=== PATIENT | male | born 1955 | race Caucasian/White ===

== ENCOUNTER 2016-11-06 10:08 | Emergency (ER) | payer BC ==
[~2016-11-06] VITALS: Ht 177.8 cm; Wt 65.3 kg
[~2016-11-06 10:08] MED LIST: ADVIL200 M1 PO; ALPRAZOLAM0.5 M3 PO; APAP/OXYCODONE1 TA5 PO; BACTRIM DS 8001 TAB PO; CYCLOPHOSPHAMID50 M1 PO; INSULIN GL100 UNITS/ SC; JENTADUETO 2.51 TA1 PO; MORPHINE SULFAT60 MG PO; OXYBUTYNIN5 MG PO; PREDNISONE 5MG.5 MG PO; TAMSULOSIN HYD0.4 MG PO; ZOFRAN24 MG PO; ZOFRAN4 MG PO; [UNRECOGNIZED DRUG - OTHER] PO
[2016-11-06 10:25] LABS: URINE BILIRUBIN - DIPSTICK NEGATIVE (NEG); URINE BLOOD NEGATIVE (NEG)
[2016-11-06] MEDS ORDERED: FLOMAX0.4 MG PO (10:39)
[2016-11-06] MEDS ORDERED: PRAMOXINE TP (10:40)
[2016-11-06] MEDS ORDERED: HYDROCORTISONE TP (10:40)
--- NOTE | 2016-11-06 10:49 | Urgent Treatment Center Report ---
History of Present Issue Date/Time Seen by Provider 11/06/16 1044 Visit Reason Pt arrived:Walked Presenting Problem:PT STATES DIFFICULTY URINATING FOR PAST 24 HOURS. STATES DIFFICULTY STARTING URINE STREAM, AND ONLLY VOIDING SMALL AMOUNTS AT A TIME. STATES HISTORY OF PROSTATE CANCER Location if Accident: Onset of symptoms date/time:/ or onset unknown for:MEDICAL HX UNKNOWN Have you (or family members/close friends) recently traveled outside the [place]? N If Yes, where/when: Have you had exposure to infectious disease within the past month? TB? Other? Specify: Source patient, RN notes reviewed, family Exam Limitations no limitations Comment Patient presents with difficulty urinating since last night. He states it takes several minutes to begin a stream, he is urinating only small volumes, and it is uncomfortable. He has a history of stage IV prostate cancer, diagnosed 2 years ago. He has had both chemo and radiation in the past. His recent PSA was elevated and starts another treatment next week. He stopped taking Capodex 2 days ago. He has a remote history of kidney stones, but no flank pain or hematuria. He has had no urinary obstruction previously. He also complains of something like a boil on his left buttock area. He states that is is uncomfortable and feels like it is bulging. Has regular bowel movements typically despite being on pain medicine for the cancer. ALLERGIES Coded Allergies: ciprofloxacin (From Cipro) (04/14/15) Home Medications Reported Medications Prednisone (Prednisone 5MG) 5 MG PO BID #60 Alprazolam 0.5 MG PO PRN PRN ANXIETY #60 OXYCODONE HCL/ACETAMINOPHEN (Oxycodone-Acetaminophen 5-325) 2 TAB PO Q4-6 Morphine Sulfate (Morphine Sulfate ER) 60 MG PO Q8H #60 Cyclophosphamide 50 MG PO QID 14 Days Diethylstilbestrol 1 MG PO DAILY INSULIN GLARGINE (Lantus 3ML Solostar Pen) 20 UNITS SC DAILY LINAGLIPTIN/METFORMIN HCL (Jentadueto 2.5 MG-500 MG Tab) 1 TAB PO BIDD History Medical History General CAD? No Angina: No [place]: No Hypertension? No Hyperlipidemia? Yes CHF? No DVT? No PE? No COPD? No Asthma? No Anemia? No GERD? No Gastric ulcers? No GI Bleed? No Hernia? No Thyroid Problems? No Hypothyroidism? No CVA? No Seizures? No Diabetes? Yes Insulin Dependent: Yes Insulin Pump: No Home FSBS? Yes Renal Insuffiency? No UTI? No Stones? Yes BPH? No GB Disease: No Nephritic Syndrome? No Asplenia? No Hepatitis? No Sickle Cell Disease? No Arthritis? No Migraines? No Cataracts? No Glaucoma? No MRSA? No HIV? No TB? No Anxiety? Yes Depression? No Cancer? Yes Site: PROSTATE STAGE IV CA More? Yes Additional hx: RADIATION R/T PROSTATE CA Immunization HX DT/Tetanus Unknown Pneumonia Refuses Surgical Hx Previous Surgery?Y PROSTATE BX Family History Family HX Diabetes Yes CAD Yes Hypertension Yes Hyperlipidemia Yes Cancer Yes TB No Social History Smoking Hx Smoker: Former Smoker Tobacco: No Packs/day < 1 Pack Alcohol Alcohol: No Review of Systems All Other Systems Reviewed and Negative Gastrointestinal denies constipation Genitourinary hesitancy, pain. denies: dysuria, hematuria. Physical Exam Vital Signs Vital Signs Date Time Temp Pulse Resp B/P Pulse O2 O2 Flow FiO2 Ox Delivery Rate 11/06 1017 98.0 96 20 149/93 98 General Appearance normal appearance, no apparent distress Respiratory Status No: respiratory distress, trachea midline, chest symmetrical. Lung Sounds bilateral: normal breath sounds, lungs clear. Cardiovascular normal exam, regular rate/rhythm, no peripheral edema, no gallop, no JVD, no murmur, no rub Gastrointestinal normal bowel sounds, normal exam, non tender Back no CVA tenderness Rectal hemorrhoids, small anal fissure 10 o clock Male Genitalia normal genitalia Neurologic alert, normal exam, oriented x 3 Mental status normal mood/affect Medical Decision Making LABS/Meds/Orders Pt receiving controlled substance in ED? No Results/Orders Laboratory Tests 11/06/16 1020: Urine Color YELLOW, Urine Appearance Clear, Urine pH 6.0, Ur Specific Camas 1.020, Urine Protein NEGATIVE, Urine Ketones NEGATIVE, Urine Blood NEGATIVE, Urine Nitrate NEGATIVE, Urine Bilirubin NEGATIVE, Urine Urobilinogen 0.2, Ur Leukocyte Esterase NEGATIVE, Urine Glucose 500 Orders Procedure Date/time Status [facility] URINE DIPSTICK 11/06 1020 Complete Departure Departure Time of Disposition 1048 Disposition DC Home or Self Care(routine) Clinical Impression Primary Impression: Urinary retention Secondary Impressions: Anal fissure, Prostate cancer Condition STABLE Referrals ATKINS,LEONIDAS Patient Instructions DI for Urinary Retention in Men Additional Instructions F/U with Dr Mata this week. May need blackwell cath if unable to urinate at home. In/out cath yielded additional 200 cc of urine after urinating small amount for urinalysis. Discharge Counseling Counseled pt/family regarding diagnosis, test results, medications/RX, home care, follow up needs Prescriptions Current Visit Scripts TAMSULOSIN HCL (Flomax) 0.4 MG PO QHS #30 CAP HYDROCORTISONE/PRAMOXINE (Proctofoam-Hc 1%-1% Foam) 1 SUIR TP TIDP PRN rectal pain #30 EACH at 4496
[2016-11-06 10:54] VITALS: BP 149/93
--- OUTSIDE RECORDS SUMMARY | 2016-11-07 16:29 | External Medical Summary Rpt ---
Author Author , DONNA THOMPSON Address Unknown Phone [email or web address] Purpose Continuity of Care Document - 09-24-2016 through 2016 Problems Code Diagnosis DOS Provider Status C61 MALIGNANT NEOPLASM OF PROSTATE K52.9 NONINFECTIV E GASTROENTER ITIS AND COLITIS, UNSPECIFIED Results Labs Lab Lab Date Result Refere Interp Status Commen Order Detail nces retati t Range on Urinalysis macro (dipstick) panel in Urine (11-06-2016 10:20) Appeara Clear CLEAR complet nce of 017 ed Urine 10:20 Bilirub NEGATIV NEG complet in 017 E ed [Presen 10:20 ce] in Urine by Test strip Erythro NEGATIV NEG complet cytes 017 E ed [Presen 10:20 ce] in Urine Color YELLOW YELLOW complet of 017 ed Urine 10:20 Ketones NEGATIV NEG complet 017 E ed [Presen 10:20 ce] in Urine by Automat ed test strip Leukocy NEGATIV NEG complet te 017 E ed esteras 10:20 e [Presen ce] in Urine by Automat ed test strip Nitrite NEGATIV NEG complet 017 E ed [Presen 10:20 ce] in Urine by Test strip Urobili 0.2 NEG complet nogen 017 ed [Presen 10:20 ce] in Urine by Test strip Hemoglobin.gastrointestinal [Presence] in Stool (09-25-2016 03:57) Hemoglo POSITIV NEG complet bin.gas 017 E ed trointe 03:57 stinal [Presen ce] in Stool --1st specime n Urinalysis dipstick W Reflex Microscopic panel in Urine (09-24-2016 21:00) Amorpho 3+ NONE complet us 017 ed sedimen 21:00 t [Presen ce] in Urine sedimen t by Light microsc opy Mucus 06-24-2 4+ NONE complet [Presen 017 ed ce] in 21:00 Urine sedimen t by Light microsc opy Leukocy 3-5 O complet hollis 017 wbc/hpf ed [#/volu 21:00 me] in Urine Urinalysis dipstick W Reflex Microscopic panel in Urine (09-24-2016 21:00) Appeara SL CLEAR complet nce of 017 CLOUDY ed Urine 21:00 Bilirub NEGATIV NEG complet in 017 E ed [Presen 21:00 ce] in Urine by Test strip Erythro NEGATIV NEG complet cytes 017 E ed [Presen 21:00 ce] in Urine Color YELLOW YELLOW complet of 017 ed Urine 21:00 Ketones 3+ NEG Abnorma complet 017 l ed [Presen 21:00 ce] in Urine by Automat ed test strip Mucus NEGATIV NEG complet [Presen 017 E ed ce] in 21:00 Urine sedimen t by Light microsc opy Nitrite NEGATIV NEG complet 017 E ed [Presen 21:00 ce] in Urine by Test strip Urobili 0.2 NEG complet nogen 017 ed [Presen 21:00 ce] in Urine by Test strip Differential panel, method unspecified - (09-24-2016 18:50) Anisocy 1+ complet tosis 017 ed [Presen 18:50 ce] in Blood LYMPH 11 % 10% - Normal complet 017 50% ed 18:50 Macrocy 2 1+ complet hollis 017 ed [Presen 18:50 ce] in Blood Platele NORMAL complet ts 017 ed [Presen 18:50 ce] in Blood by Light microsc opy Rouleau 1+ complet x 017 ed [Presen 18:50 ce] in Blood by Light microsc opy
--- OUTSIDE RECORDS SUMMARY | 2016-11-07 16:29 | External Medical Summary Rpt ---
Author Author [facility] Organization [facility] Address Unknown Phone Unavailable Care Team Providers Care Practical Nurse Clinical Coordinator Name Role Phone Geena ROBERTS PCP [phone] Encounter [facility] [id number] Date(s): 09/01/16 - 09/30/16 [facility] [address] [place] [id number]- Discharge Disposition: OP Self Care or Home Attending Physician: CHRISTOPHER PEREZ MD-ONC Referring Physician: DEEDEE ALVES MD-URO Reason for Visit SECONDARY MALIGNANT NEOPLASM OF BONE Vital Signs No data available for this section Problem List No data available for this section Allergies, Adverse Reactions, Alerts No data available for this section Medications No data available for this section Results No data available for this section Immunizations No data available for this section Procedures No data available for this section Social History No data available for this section Assessment and Plan No data available for this section Hospital Discharge Instructions No data available for this section
--- OUTSIDE RECORDS SUMMARY | 2016-11-07 16:29 | External Medical Summary Rpt ---
Author Author , DONNA THOMPSON Address Unknown Phone [email or web address] Immunization Name Date Rout CVX Reac Dose Comm Prov Is Faci e tion ent ider Refu lity Give sed n Infl 10-0 150 999 Hist D203 No D203 uenz 4-20 oric 45 45 a 16 al Quad Info Inj rmat ion - Sour ce Unsp ecif ied
--- OUTSIDE RECORDS SUMMARY | 2016-11-07 16:29 | External Medical Summary Rpt ---
Author Author [facility] Organization [facility] Address Unknown Phone Unavailable Care Team Providers Care Sharepoint Application Developer Name Role Phone Geena ROBERTS PCP [phone] Encounter [facility] [id number] Date(s): 10/01/16 - 10/31/16 [facility] [address] [place] [address]- Discharge Disposition: OP Self Care or Home [...]
--- OUTSIDE RECORDS SUMMARY | 2016-11-07 16:29 | External Medical Summary Rpt ---
Author Author , DONNA THOMPSON Address Unknown Phone [email or web address] Purpose Continuity of Care Document - 09-24-2016 [...]
--- OUTSIDE RECORDS SUMMARY | 2016-11-07 16:29 | External Medical Summary Rpt ---
Author Author [facility] Organization [facility] Address Unknown Phone Unavailable Care Team Providers Care Simulation Technician Name Role Phone Geena ROBERTS PCP [phone] Encounter [facility] [id number] Date(s): 10/01/16 - 10/31/16 [facility] [address] [place] [address]- [phone] Discharge Disposition: OP Self Care or Home [...]
--- OUTSIDE RECORDS SUMMARY | 2016-11-07 16:29 | External Medical Summary Rpt ---
Author Author [facility] Organization [facility] Address Unknown Phone Unavailable Care Team Providers Care High School Music Instructor Name Role Phone Geena ROBERTS PCP [phone] Encounter [facility] [id number] Date(s): 09/01/16 - 09/30/16 [facility] [address] [place] [address]- Discharge Disposition: OP Self Care or Home [...]
--- OUTSIDE RECORDS SUMMARY | 2016-11-07 16:29 | External Medical Summary Rpt ---
Author Author , DONNA THOMPSON Address Unknown Phone [email or web address] Immunization Name Date Rout CVX Reac Dose Comm Prov Is Faci e tion ent ider Refu lity Give sed n Infl 10-0 150 999 Hist D203 No D203 uenz 4-20 oric 45 45 a 16 al Quad Info Inj rmat ion - Sour ce Unsp ecif ied
--- OUTSIDE RECORDS SUMMARY | 2016-11-07 16:30 | External Medical Summary Rpt ---
Author Author DONNA Alaniz, [employer] Organization [employer] Address Unknown Phone Unavailable Results Urinalysis macro (dipstick) panel in Urine Observa Value Referen Units Interpr Notes Date tion ce etation Range Appeara Clear CLEAR No No No Nov 06 nce of informa informa informa 2016 Urine tion in tion in tion in 10:20 source source source AM data data data Bilirub NEGATIV NEG No No No Nov 06 in E informa informa informa 2016 [Presen tion in tion in tion in 10:20 ce] in source source source AM Urine data data data by Test strip Erythro NEGATIV NEG No No No Nov 06 cytes E informa informa informa 2016 [Presen tion in tion in tion in 10:20 ce] in source source source AM Urine data data data Color YELLOW YELLOW No No No Nov 06 of informa informa informa 2017 Urine tion in tion in tion in 10:20 source source source AM data data data Glucose NEG No No No Nov 06 [Mass/vol informati informati informati 2017 ume] in on in on in on in 10:20 AM Urine by source source source Test data data data strip Ketones NEGATIV NEG mg/dL No No Nov 06 E informa informa 2016 [Presen tion in tion in 10:20 ce] in source source AM Urine data data by Automat ed test strip pH of 5.0 - 8.5 No Normal No Nov 06 Urine informati informati 2017 on in on in 10:20 AM source source data data Protein NEG mg/dL No No Nov 06 [Mass/vol informati informati 2016 ume] in on in on in 10:20 AM Urine by source source Automated data data test strip Specific 1.005 - No Normal No Nov 06 gravity 1.030 informati informati 2017 of Urine on in on in 10:20 AM source source data data Leukocy NEGATIV NEG No No No Nov 06 te E informa informa informa 2017 esteras tion in tion in in 10:20 e source source source AM [Presen data data data ce] in Urine by Automat ed test strip Nitrite NEGATIV NEG No No No Nov 06 E informa informa informa 2016 [Presen tion in in in 10:20 ce] in source source source AM Urine data data data by Test strip Urobili 0.2 NEG E.U./dL No No Nov 06 nogen informa informa 2016 [Presen tion in in 10:20 ce] in source source AM Urine data data by Test strip Glucose [Mass/volume] in Capillary blood by Glucometer Observa Value Referen Units Interpr Notes Date ce etation Range Glucose 70 - 110 mg/dl High No Sep 26 [Mass/vol informati 2016 ume] in on in 12:16 PM Capillary source blood by data Glucomete r Glucose [Mass/volume] in Capillary blood by Glucometer Observa Value Referen Units Interpr Notes Date ce etation Range Glucose 70 - 110 mg/dl High No Sep 26 [Mass/vol informati 2017 6:31 ume] in on in AM Capillary source blood by data Glucomete r Glucose [Mass/volume] in Capillary blood by Glucometer Observa Value Referen Units Interpr Notes Date etation Range Glucose 70 - 110 mg/dl High No Sep 25 [Mass/vol informati 2017 ume] in on in 10:04 PM Capillary source blood by data Glucomete r Glucose [Mass/volume] in Capillary blood by Glucometer Observa Value Referen Units Interpr Notes Date etation Range Glucose 70 - 110 mg/dl High No Sep 25 [Mass/vol informati 2017 4:55 ume] in on in PM Capillary source blood by data Glucomete r Glucose [Mass/volume] in Capillary blood by Glucometer Observa Value Referen Units Interpr Notes ce etation Range Glucose 70 - 110 mg/dl High No Sep 25 [Mass/vol informati 2016 ume] in on in 11:52 AM Capillary source blood by data Glucomete r Glucose [Mass/volume] in Capillary blood by Glucometer Observa Value Referen Units Interpr Notes Date ce etation Range Glucose 70 - 110 mg/dl High No Sep 25 [Mass/vol informati 2017 6:24 ume] in on in AM Capillary source blood by data Glucomete r DIARRHEA PANEL,PCR Observa Value Referen Units Interpr Notes Date tion ce etation Range Adenovi NOT NOT No No No Sep 25 eliza DETECTE DETECTE informa informa informa 2017 40+41 D tion in tion in tion in 3:57 AM Ag source source source [Presen data data data ce] in Stool Aeromon NOT NOT No No No Sep 25 as DETECTE DETECTE informa informa informa 2017 salmoni D tion in tion in tion in 3:57 AM sindy source source source [Presen data data data ce] in Unspeci fied specime n Astrovi NOT NOT No No No Sep 25 eliza DETECTE DETECTE informa informa informa 2017 [Presen D tion in tion in tion in 3:57 AM ce] in source source source Stool data data data by Electro n microsc opy Campylo NOT NOT No No No Sep 25 bacter DETECTE DETECTE informa informa informa 2017 sp Ab D tion in tion in tion in 3:57 AM [Presen source source source ce] in data data data Serum Clostri NOT NOT No No No Sep 25 dium DETECTE DETECTE informa informa informa 2017 diffici D tion in tion in tion in 3:57 AM le source source source toxin data data data A+B [Presen ce] in Stool Cryptos NOT NOT No No No Sep 25 poridiu DETECTE DETECTE informa informa informa 2017 m sp Ag D tion in tion in tion in 3:57 AM source source source [Presen data data data ce] in Unspeci fied specime n Cyclosp NOT NOT No No No Sep 25 ora DETECTE DETECTE informa informa informa 2017 cayetan D tion in tion in tion in 3:57 AM kiana source source source [Presen data data data ce] in Unspeci fied specime n Escheri NOT NOT No No No Sep 25 irina DETECTE DETECTE informa informa informa 2017 coli D tion in tion in tion in 3:57 AM [Presen source source source ce] in data data data Unspeci fied specime n by Culture FDA method Escheri NOT NOT No No No Sep 25 irina DETECTE DETECTE informa informa informa 2017 coli D tion in tion in tion in 3:57 AM [Presen source source source ce] in data data data Unspeci fied specime n by Culture FDA method Escheri NOT NOT No No No Sep 25 irina DETECTE DETECTE informa informa informa 2016 coli D tion in tion in tion in 3:57 AM Shiga-l source source source wilder data data data toxin 1 assa Escheri NOT NOT No No No Sep 25 irina DETECTE DETECTE informa informa informa 2016 coli D tion in tion in tion in 3:57 AM [id number] source source source data data data [Presen ce] in Stool by Organis m specifi c culture Entamoe NOT NOT No No No Sep 25 ba DETECTE DETECTE informa informa informa 2017 histoly D tion in tion in tion in 3:57 AM reina source source source [Presen data data data ce] in Stool by Trichro me stain Giardia NOT NOT No No No Sep 25 DETECTE DETECTE informa informa informa 2016 lamblia D tion in tion in tion in 3:57 AM Ag source source source [Presen data data data ce] in Stool Norovir NOT NOT No No No Sep 25 us Ag DETECTE DETECTE informa informa informa 2016 [Presen D tion in tion in tion in 3:57 AM ce] in source source source Stool data data data Stool NOT NOT No No No Sep 25 Plesiom DETECTE DETECTE informa informa informa 2017 onas D tion in tion in tion in 3:57 AM shigell source source source oides data data data DNA detec Rotavir NOT NOT No No No Sep 25 us RNA DETECTE DETECTE informa informa informa 2017 detecti D tion in tion in tion in 3:57 AM on by source source source probe data data data and tar Salmone NOT NOT No No No Sep 25 lla sp DETECTE DETECTE informa informa informa 2017 DNA D tion in tion in tion in 3:57 AM [Identi source source source fier] data data data in Unspeci fied specime n by Probe & target amplifi cation method Caliciv NOT NOT No No No Sep 25 irus DETECTE DETECTE informa informa informa 2016 [Identi D tion in tion in tion in 3:57 AM fier] source source source in data data data Stool by Electro n microsc opy Escheri NOT NOT No No No Sep 25 irina DETECTE DETECTE informa informa informa 2017 coli D tion in tion in tion in 3:57 AM [Presen source source source ce] in data data data Unspeci fied specime n by Culture FDA method Escheri NOT NOT No No No Sep 25 irina DETECTE DETECTE informa informa informa 2016 coli D tion in tion in tion in 3:57 AM SXT source source source gene+H7 data data data gene [Identi fier] in Unspeci fied specime n by Probe & target amplifi cation method Vibrio NOT NOT No No No Sep 25 cholera DETECTE DETECTE informa informa informa 2016 e DNA D tion in tion in tion in 3:57 AM [Presen source source source ce] in data data data Unspeci fied specime n by Probe & target amplifi cation method Vibrio NOT NOT No No No Sep 25 sp DNA DETECTE DETECTE informa informa informa 2016 [Identi D tion in tion in tion in 3:57 AM fier] source source source in data data data Unspeci fied specime n by Probe & target amplifi cation method Vibrio NOT NOT No No No Sep 25 sp DETECTE DETECTE informa informa informa 2016 identif D tion in tion in tion in 3:57 AM ied in source source source Stool data data data by Criss m specifi c culture Hemoglobin.gastrointestinal [Presence] in Stool Observa Value Referen Units Interpr Notes Date tion ce etation Range Hemoglo POSITIV NEG No No No Sep 25 bin.gas E informa informa informa 2016 trointe tion in tion in tion in 3:57 AM stinal source source source [Presen data data data ce] in Stool --1st specime n Urinalysis dipstick W Reflex Microscopic panel in Urine Observa Value Referen Units Interpr Notes Date tion ce etation Range Appeara SL CLEAR No No No Sep 24 nce of CLOUDY informa informa informa 2017 Urine tion in tion in tion in 9:00 PM source source source data data data Amorpho 3+ NONE No No No Sep 24 us informa informa informa 2017 sedimen tion in tion in tion in 9:00 PM t source source source [Presen data data data ce] in Urine sedimen t by Light microsc opy Bilirub NEGATIV NEG No No No Sep 24 in E informa informa informa 2017 [Presen tion in tion in tion in 9:00 PM ce] in source source source Urine data data data by Test strip Erythro NEGATIV NEG No No No Sep 24 cytes E informa informa informa 2017 [Presen tion in tion in tion in 9:00 PM ce] in source source source Urine data data data Color YELLOW YELLOW No No No Sep 24 of informa informa informa 2017 Urine tion in tion in tion in 9:00 PM source source source data data data Glucose NEG No High No Sep 24 [Mass/vol informati informati 2017 9:00 ume] in on in on in PM Urine by source source Test data data strip Ketones 3+ NEG mg/dL Abnorma No Sep 24 l informa 2017 [Presen tion in 9:00 PM ce] in source Urine data by Automat ed test strip Mucus NEGATIV NEG No No No Sep 24 [Presen E informa informa informa 2017 ce] in tion in tion in tion in 9:00 PM Urine source source source sedimen data data data t by Light microsc opy Mucus 4+ NONE No No No Sep 24 [Presen informa informa informa 2016 ce] in tion in tion in tion in 9:00 PM Urine source source source sedimen data data data t by Light microsc opy Nitrite NEGATIV NEG No No No Sep 24 E informa informa informa 2017 [Presen tion in tion in tion in 9:00 PM ce] in source source source Urine data data data by Test strip pH of 5.0 - 8.5 No Normal No Sesar 24 Urine informati informati 2017 9:00 on in on in PM source source data data Protein NEG mg/dL High No Sep 24 [Mass/vol informati 2017 9:00 ume] in on in PM Urine by source Automated data test strip Specific 1.005 - No Normal No Sesar 24 gravity 1.030 informati informati 2017 9:00 of Urine on in on in PM source source data data Urobili 0.2 NEG E.U./dL No No Sep 24 nogen informa informa 2017 [Presen tion in tion in 9:00 PM ce] in source source Urine data data by Test strip Leukocy [3 O wbc/hpf No No Sep 24 hollis wbc/hpf informa informa 2017 [#/volu ; 5 tion in tion in 9:00 PM me] in wbc/hpf source source Urine ] data data Urinalysis dipstick W Reflex Microscopic panel in Urine Observa Value Referen Units Interpr Notes Date tion ce etation Range Appeara SL CLEAR No No No Sep 24 nce of CLOUDY informa informa informa 2017 Urine tion in tion in tion in 9:00 PM source source source data data data Bilirub NEGATIV NEG No No No Sep 24 in E informa informa informa 2016 [Presen tion in tion in tion in 9:00 PM ce] in source source source Urine data data data by Test strip Erythro NEGATIV NEG No No No Sep 24 cytes E informa informa informa 2016 [Presen tion in tion in tion in 9:00 PM ce] in source source source Urine data data data Color YELLOW YELLOW No No No Sep 24 of informa informa informa 2017 Urine tion in tion in tion in 9:00 PM source source source data data data Glucose NEG No High No Sep 24 [Mass/vol informati informati 2017 9:00 ume] in on in on in PM Urine by source source Test data data strip Ketones 3+ NEG mg/dL Abnorma No Sep 24 l informa 2016 [Presen tion in 9:00 PM ce] in source Urine data by Automat ed test strip Mucus NEGATIV NEG No No No Sep 24 [Presen E informa informa informa 2016 ce] in tion in tion in tion in 9:00 PM Urine source source source sedimen data data data t by Light microsc opy Nitrite NEGATIV NEG No No No Sep 24 E informa informa informa 2016 [Presen tion in tion in tion in 9:00 PM ce] in source source source Urine data data data by Test strip pH of 5.0 - 8.5 No Normal No Sep 24 Urine informati informati 2017 9:00 on in on in PM source source data data Protein NEG mg/dL High No Sep 24 [Mass/vol informati 2016 9:00 ume] in on in PM Urine by source Automated data test strip Specific 1.005 - No Normal No Sep 24 gravity 1.030 informati informati 2016 9:00 of Urine on in on in PM source source data data Urobili 0.2 NEG E.U./dL No No Sep 24 nogen informa informa 2017 [Presen tion in tion in 9:00 PM ce] in source source Urine data data by Test strip Lactate [Moles/volume] in Blood Observa Value Referen Units Interpr Notes Date tion ce etation Range Lactate 0.4 - 2.0 mmol/L Normal No Sep 24 [Moles/vo informati 2016 8:00 lume] in on in PM Blood source data CBC W Auto Differential panel in Blood Observa Value Referen Units Interpr Notes Date tion ce etation Range Basophils 0 - 0.2 K/MM3 Normal No Sep 24 informati 2016 6:50 [#/volume on in PM ] in source Blood by data Automated count Basophils 0.1 - 2.0 % Normal No Sep 24 /100 informati 2017 6:50 leukocyte on in PM s in source Blood by data Automated count Eosinophi 0.0 - 0.4 K/mm3 Normal No Sep 24 ls informati 2016 6:50 [#/volume on in PM ] in source Blood by data Automated count Eosinophi 0.1 - % Normal No Sep 24 ls/100 12.0 informati 2016 6:50 leukocyte on in PM s in source Blood by data Automated count Granulocy 1.3 - 8.0 K/mm3 Normal No Sep 24 hollis informati 2017 6:50 [#/volume on in PM ] in source Blood by data Automated count Granulocy 37.0 - % High No Sep 24 hollis/100 80.0 informati 2016 6:50 leukocyte on in PM s in source Blood by data Automated count Hematocri 42.0 - % Low No Sep 24 t [Volume 52.0 informati 2016 6:50 on in PM Fraction] source of Blood data Hemoglobi 14.1 - g/dL Low No Sep 24 n 18.0 informati 2017 6:50 [Mass/vol on in PM ume] in source Blood data Lymphocyt 0.7 - 4.5 K/mm3 Low No Sep 24 es informati 2017 6:50 [#/volume on in PM ] in source Unspecifi data ed specimen by Automated count Lymphocyt 10 - 50 % Low No Sep 24 es informati 2017 6:50 [#/volume on in PM ] in source Unspecifi data ed specimen by Automated count Erythrocy 27 - 31.2 pg Normal No Sep 24 te mean informati 2017 6:50 corpuscul on in PM ar source hemoglobi data n [Entitic mass] Erythrocy 31.8 - g/dl Normal No Sep 24 te mean 35.4 informati 2017 6:50 corpuscul on in PM ar source hemoglobi data n concentra tion [Mass/vol ume] by Automated count Erythrocy 82.2 - fl Normal No Sep 24 te mean 97.8 informati 2017 6:50 corpuscul on in PM ar volume source [Entitic data volume] by Automated count Monocytes 0.1 - 1.0 K/mm3 Normal No Sep 24 informati 2017 6:50 [#/volume on in PM ] in source Blood by data Automated count Monocytes 1.7 - 9.3 % Normal No Sesar 24 /100 informati 2017 6:50 leukocyte on in PM s in source Blood by data Automated count Platelet 7.4 - fl Low No Sep 24 mean 10.4 informati 2017 6:50 volume on in PM [Entitic source volume] data in Blood by Automated count Platelets 142 - 424 K/mm3 No No Sep 24 informati informati 2017 6:50 [#/volume on in on in PM ] in source source Blood data data Erythrocy 4.6 - 6.2 M/mm3 Low No Sep 24 hollis informati 2017 6:50 [#/volume on in PM ] in source Amniotic data fluid Erythrocy 11.5 - % Normal No Sep 24 te 17.5 informati 2017 6:50 distribut on in PM ion width source [Entitic data volume] by Automated count Leukocyte 4.8 - K/MM3 Low No Sep 24 s 10.8 informati 2017 6:50 [#/volume on in PM ] in source Blood data Differential panel, method unspecified - Observa Value Referen Units Interpr Notes Date tion ce etation Range Anisocy 1+ No No No No Sep 24 tosis informa informa informa informa 2016 [Presen tion in tion in tion in tion in 6:50 PM ce] in source source source source Blood data data data data Neutrophi 0 - 8 % Normal No Sep 24 ls.band informati 2017 6:50 form/100 on in PM leukocyte source s in data Blood by Automated count LYMPH 11 10 - 50 % Normal No Sep 24 informa 2016 tion in 6:50 PM source data Macrocy 1+ No No No No Sep 24 hollis informa informa informa informa 2016 [Presen tion in tion in tion in tion in 6:50 PM ce] in source source source source Blood data data data data Monocytes 2 - 9 % Normal No Sep 24 / informati 2017 6:50 leukocyte on in PM s in source Blood by data Automated count Platele NORMAL No No No No Sep 24 ts informa informa informa informa 2016 [Presen tion in tion in tion in tion in 6:50 PM ce] in source source source source Blood data data data data by Light microsc opy Neutrophi 42 - 76 % High No Sep 24 ls informati 2017 6:50 [#/volume on in PM ] in source Blood by data Automated count Rouleau 1+ No No No No Sep 24 x informa informa informa informa 2016 [Presen tion in tion in tion in tion in 6:50 PM ce] in source source source source Blood data data data data by Light microsc opy Cells No #CELLS No No Sep 24 Counted informati informati informati 2017 6:50 Total [#] on in on in on in PM in Blood source source source data data data Amylase [Enzymatic activity/volume] in Serum or Plasma Observa Value Referen Units Interpr Notes Date tion ce etation Range Amylase 25 - 115 U/L Normal No Sep 24 [Enzymati informati 2017 6:50 c on in PM activity/ source volume] data in Serum or Plasma Comprehensive metabolic 2000 panel in Serum or Plasma Observa Value Referen Units Interpr Notes Date tion ce etation Range Albumin/G 1.1 - 1.8 No Low No Sep 24 lobulin informati informati 2017 6:50 [Mass on in on in PM ratio] in source source Serum or data data Plasma Albumin 3.4 - 5.0 gm/dL Normal No Sep 24 [Mass/vol informati 2017 6:50 ume] in on in PM Serum or source Plasma data Alkaline 46 - 116 U/L High No Sep 24 phosphata informati 2017 6:50 se on in PM [Enzymati source c data activity/ volume] in Serum or Plasma Bilirubin 0.2 - 1.0 mg/dL Normal No Sep 24 .total informati 2016 6:50 [Mass/vol on in PM ume] in source Serum or data Plasma Urea 7 - 18 mg/dL Normal No Sep 24 nitrogen informati 2017 6:50 [Mass/vol on in PM ume] in source Serum or data Plasma Calcium 8.5 - mg/dL High No Sep 24 [Mass/vol 10.1 informati 2017 6:50 ume] in on in PM Serum or source Plasma data Chloride 98 - 107 mmoL/L Normal No Sep 24 [Moles/vo informati 2016 6:50 lume] in on in PM Serum or source Plasma data Carbon 21.0 - mmoL/L Normal No Sep 24 dioxide, 32.0 informati 2017 6:50 total on in PM [Moles/vo source lume] in data Serum or Plasma Creatinin 0.70 - mg/dL Low No Sep 24 e 1.30 informati 2016 6:50 [Mass/vol on in PM ume] in source Serum or data Plasma Creatinin 50 - 200 ML/MIN Normal No Sep 24 e renal informati 2017 6:50 clearance on in PM source predicted data by Cockcroft -Gault formula Estimated >60 ML/MIN No REFERENCE Sep 24 informati RANGE: 2017 6:50 glomerula on in >60 PM r source ML/MIN/1. filtratio data 73 SQUARE n rate METERSIf (GF this patient is -A merican, then multiply theresult by 1.210. Globulin 1.3 - 3.2 gm/dL High No Sep 24 [Mass/vol informati 2017 6:50 ume] in on in PM Serum source data Glucose 74 - 106 mg/dL High No Sep 24 [Mass/vol informati 2017 6:50 ume] in on in PM Serum or source Plasma data Potassium 3.5 - 5.1 mmoL/L Normal No Sep 24 informati 2017 6:50 [Moles/vo on in PM lume] in source Serum or data Plasma Sodium 136 - 145 mmoL/L Normal No Sep 24 [Moles/vo informati 2016 6:50 lume] in on in PM Serum or source Plasma data Aspartate 15 - 37 U/L Low No Sep 24 informati 2016 6:50 aminotran on in PM sferase source [Enzymati data c activity/ volume] in Serum or Plasma Alanine 12 - 78 U/L Normal No Sep 24 aminotran informati 2016 6:50 sferase on in PM [Enzymati source c data activity/ volume] in Serum or Plasma Protein 6.4 - 8.2 gm/dL Normal No Sep 24 [Mass/vol informati 2016 6:50 ume] in on in PM Serum or source Plasma data Lipase [Enzymatic activity/volume] in Serum or Plasma Observa Value Referen Units Interpr Notes Date tion ce etation Range Lipase 73 - 393 U/L Normal No Sep 24 [Enzymati informati 2016 6:50 c on in PM activity/ source volume] data in Serum or Plasma
== END 2016-11-06 10:54 | disposition home or self-care (01) ==
LOC: UTC 10:08
PROVIDERS: Emergency Medicine
DX: K60.2 Anal fissure, unspecified (principal); C61 Malignant neoplasm of prostate

== ENCOUNTER 2016-11-26 21:26 | Emergency (ER) | payer BC ==
[~2016-11-26] VITALS: Ht 177.8 cm; Wt 64.9 kg
[~2016-11-26 21:26] MED LIST changes: +FLOMAX0.4 MG PO; +HYDROCORTISONE TP; +PRAMOXINE TP
--- NOTE | 2016-11-26 21:49 | Emergency Room Report ---
History of Present Illness Time Seen by [id number] Presenting Problem in Triage Pt arrived:Walked Presenting Problem:FEVER. PT HAS STAGE 4 PROSTATE CA, HAD LAST CHEMO TX ON . WAS TOLD BY ONCOLOGIST THAT IF FEVER DEVELOPED TO GO GET BLOOD WORK. PT ALSO C/O'S BILATERAL LEG ACHING. 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 Y Clinical Suspician of Infection? N Mental Status: 1 - Regular (Normal Baseline) Sepsis Risk:Possible Sepsis Risk Have you (or family members/close friends) recently traveled outside the [place]? N If Yes, where/when: Have you had exposure to infectious disease within the past month? N TB? Other? Specify: Source patient, RN notes reviewed, family, old records Exam Limitations no limitations Comment pt with chemotherapy about 2 weeks ago and tonight episode of fever/chill with temp at home 101-,no cough/rash or gu sx Cardiac Chest Pain Chest pain indicative of cardiac No Timing/Duration this evening Severity moderate ALLERGIES Coded Allergies: ciprofloxacin (From Cipro) (04/14/15) Home Medications Active Scripts TAMSULOSIN HCL (Flomax) 0.4 MG PO QHS #30 CAP Prov: 11/06/16 Reported Medications Prednisone (Prednisone 5MG) 5 MG PO BID #60 Alprazolam 0.5 MG PO PRN PRN ANXIETY #60 OXYCODONE HCL/ACETAMINOPHEN (Oxycodone-Acetaminophen 5-325) 2 TAB PO Q4-6 Morphine Sulfate (Morphine Sulfate ER) 60 MG PO Q8H #60 INSULIN GLARGINE (Lantus 3ML Solostar Pen) 20 UNITS SC DAILY LINAGLIPTIN/METFORMIN HCL (Jentadueto 2.5 MG-500 MG Tab) 1 TAB PO BIDD History Medical History General CAD? No Angina: No [place]: No Hypertension? No Hyperlipidemia? Yes CHF? No DVT? No PE? No COPD? No Asthma? No Anemia? No GERD? No Gastric ulcers? No GI Bleed? No Hernia? No Thyroid Problems? No Hypothyroidism? No CVA? No Seizures? No Diabetes? Yes Insulin Dependent: Yes Insulin Pump: No Home FSBS? Yes Renal Insuffiency? No End Stage Renal Disease? No UTI? No Stones? Yes BPH? No GB Disease: No Nephritic Syndrome? No Asplenia? No Hepatitis? No Sickle Cell Disease? No Arthritis? No Migraines? No Cataracts? No Glaucoma? No MRSA? No HIV? No TB? No Anxiety? Yes Depression? No Cancer? Yes Site: PROSTATE STAGE IV CA More? Yes Additional hx: RADIATION R/T PROSTATE CA Immunization Hx DT/Tetanus Unknown Pneumonia Refuses Surgical Hx Previous Surgery?Y PROSTATE BX Family History Family Hx Diabetes Yes CAD Yes Hypertension Yes Hyperlipidemia Yes Cancer Yes TB No Social History Smoking Hx Smoker: Former Smoker Tobacco: No Packs/day < 1 Pack Alcohol Alcohol: No Drugs none Review of Systems All Other Systems Reviewed and Negative Constitutional see HPI, chills, fever Eyes denies drainage ENT denies: ear discharge, epistaxis, throat pain. Respiratory denies cough, denies shortness of breath, denies wheezing Cardiovascular denies chest pain, denies palpitations, denies syncope Gastrointestinal denies abdominal pain, denies diarrhea, denies vomiting Genitourinary denies: dysuria, frequency, hesitancy, hematuria. Musculoskeletal denies back pain, denies joint pain, denies joint swelling, denies neck pain Skin denies rash Psychiatric/Neurological denies headache, denies seizure Physical Exam Vital Signs Vital Signs Date Time Temp Pulse Resp B/P Pulse O2 O2 Flow FiO2 Ox Delivery Rate 11/27 0013 93 20 129/77 99 11/26 2321 99.1 87 20 158/91 97 11/26 2321 86 20 158/91 97 11/26 2141 99.4 95 20 142/86 98 - WBC >12,000 or <4,000 or 10% bands? 2 or more SIRS Criteria Met? B/P:129/77 MAP:104 Creatinine >2.0? UA output<0.5ml/kg/hr for 2 hrs? Platelet count >100,000? Lactate >2.0mmol/1? INR >1.2 or PTT > than 60 sec? Evidence of Organ Dysfunction? Provider documented clinical suspician of infection? N Sepsis Criteria Count: 2 Sepsis Risk: Possible Sepsis Risk General Appearance no apparent distress Eye Exam - bilateral eye PERRL, bilateral eye EOMI Ear, Nose, Throat normal ENT inspection Neck supple Respiratory Status No: respiratory distress. Lung Sounds bilateral: lungs clear. 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 No Results/Orders Laboratory Tests 11/26/16 2300: Urine Color YELLOW, Urine Appearance CLEAR, Urine pH 6.5, Ur Specific Zillah <= 1.005, Urine Protein NEGATIVE, Urine Ketones NEGATIVE, Urine Blood NEGATIVE, Urine Nitrate NEGATIVE, Urine Bilirubin NEGATIVE, Urine Urobilinogen 0.2, Ur Leukocyte Esterase NEGATIVE, Urine RBC NONE, Urine WBC 3-5, Ur Squamous Epith Cells 3-5, Urine Bacteria TRACE, Urine Glucose NEGATIVE 11/26/16 2225: Sodium 133 L, Potassium 3.9, Chloride 97 L, Carbon Dioxide 29, BUN 13, Creatinine 0.6 L, Estimated Creat Clear 120, Estimated GFR (MDRD) 137, Glucose 173 H, Calcium 11.4 H, Total Bilirubin 0.8, AST 38 H, ALT 21, Alkaline Phosphatase 856 H, Total Protein 7.6, Albumin 3.7, Globulin 3.9 H, Albumin/ Globulin Ratio 0.9 L, WBC 3.2 L, RBC 4.04 L, Hgb 11.3 L, Hct 35.4 L, MCV 87.6, RDW 15.6, Plt Count 267, Gran % 75.8, Gran # 2.4, Lymphocytes % 11.5, Monocytes % 12.7 H, Lymphocytes # 0.4 L, Monocytes # 0.4, PUBS MCHC 31.9, MCH 28.0 Current Medication Orders Sig/Theresa Start time Last Medication Dose Route Stop Time Status Admin Ceftriaxone Sodium 0 .STK-MED ONE 11/28 43 DC .ROUTE Sodium Chloride 100 ML .STK-MED ONE 11/27 004 DC IV Ceftriaxone Sodium 1 GM ONCE ONE 11/27 0030 AC 11/27 Sodium Chloride 50 ML IV 11/27 Sodium Chloride 10 ML PRN PRN 11/26 2199 AC IV 11/27 2148 Orders Procedure Date/time Status CHEST(2 VIEWS-NOT PORTABLE) 11/26 2150 Active IV SALINE LOCK 11/26 2149 Active CULTURE, BLOOD 11/26 2149 Active URINALYSIS/COMPLETE 11/26 2149 Complete COMPLETE METABOLIC PANEL 11/26 2149 Complete CBC WITH AUTO DIFF 11/26 2149 Complete XRAY/CT/US XRAY/CT/US XRAY chest XR interpretation by reviewed by me Xray Results abnormal Departure Departure Time of Disposition 16 Disposition DC Home or Self Care(routine) Clinical Impression Primary Impression: Febrile illness, acute Secondary Impressions: Prostate cancer Condition STABLE Referrals Jaleel Shirley MD (Family) Patient Instructions DI for Fever (Symptom) -- Adult Additional Instructions call pcp and oncologist for follow up and restart septra and recheck if needed Discharge Counseling Counseled pt/family regarding diagnosis, test results, medications/RX, follow up needs ED Critical Care Critical Care No at 0053
[2016-11-26 22:14] LABS: URINE BILIRUBIN - DIPSTICK NEGATIVE (NEG); URINE BLOOD NEGATIVE (NEG)
[2016-11-27 00:04] LABS: HEMOGLOBIN 11.3 g/dL (14.1-18.0)
[2016-11-27 00:05] LABS: LYMPH # 0.4 K/mm3 (0.7-4.5); LYMPH % 11.5 % (10-50)
[2016-11-27 01:10] VITALS: BP 129/77
--- NOTE | 2016-11-27 06:21 | RADIOLOGY REPORT PS360 ---
CHEST(2 VIEWS-NOT PORTABLE) HISTORY: cough ORDERING PHYSICIAN: Kisha Knowles MD PATIENT AGE: 61 years COMPARISON: None available FINDINGS: The cardiomediastinal silhouette and pulmonary vascularity are within normal limits. There is patchy density noted over both lower lung zones probably related to overlying breast tissue. Previous CT scan did demonstrate gynecomastia. The lungs are otherwise clear without infiltrates, suspicious nodules, or pleural effusions. Increased density involves T8, T9, and T10 vertebral bodies most prominent at T9.. There are old bilateral seventh rib fractures IMPRESSION: 1. Ivory vertebra sign at T8, T9, and T10. 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 Otherwise negative chest
== END 2016-11-27 01:17 | disposition home or self-care (01) ==
LOC: ER 21:26
PROVIDERS: Emergency Medicine
DX: R50.9 Fever, unspecified (principal); C61 Malignant neoplasm of prostate; E11.65 Type 2 diabetes mellitus with hyperglycemia; Z79.4 Long term (current) use of insulin

== ENCOUNTER → 2016-12-27 | Outpatient (CLI) | payer BC ==
[~2016-12-27] MED LIST changes: +ALEVE220 M1
--- NOTE | 2016-12-27 12:33 | RADIOLOGY REPORT PS360 ---
ANKLE-RT-3 VIEWS HISTORY: Pain following injury METASTATIC MALIGNANT NEOPLASM TO PROSTATE ORDERING PHYSICIAN: Jaleel Shirley MD PATIENT AGE: 61 years COMPARISON: None FINDINGS: No fracture or dislocation. No lytic or blastic change. There is normal mineralization.. The joint spaces are well-preserved. No significant degenerative/arthritic changes. No erosive changes evident. IMPRESSION: Negative, no acute finding
--- NOTE | 2016-12-27 12:35 | RADIOLOGY REPORT PS360 ---
FEMUR-RT-2 VIEWS HISTORY: Pain following injury, metastatic prostate cancer METASTATIC MALIGNANT NEOPLASM TO PROSTATE ORDERING PHYSICIAN: Jaleel Shirley MD PATIENT AGE: 61 years COMPARISON: 09/05/2016 FINDINGS: Diffuse osteoblastic metastasis involves the right hemipelvis scattered foci of increased density in the proximal right femur and intertrochanteric region of the femur consistent with blastic metastasis of prostate cancer. No acute fracture or dislocation evident. The sclerosis of the proximal shaft of the right femur has progressed compared to the previous exam. IMPRESSION: 1. No acute fracture. 2. Blastic metastasis in the right hemipelvis, intertrochanteric region of the right femur, and proximal femoral shaft somewhat more prominent in the region of the proximal femoral shaft compared to the previous exam
--- NOTE | 2016-12-27 12:37 | RADIOLOGY REPORT PS360 ---
PELVIS AP ONLY HISTORY: Right hip pain following injury METASTATIC MALIGNANT NEOPLASM TO PROSTATE ORDERING PHYSICIAN: Jaleel Shirley MD PATIENT AGE: 61 years COMPARISON: 09/05/2016 FINDINGS: Diffuse blastic metastasis involves the L5 vertebral body, the right ilium, ischium, right superior and inferior pubic ramus, left superior and inferior pubic ramus, and left SI region superiorly. No acute fracture or dislocation is evident. Metastatic foci are present in the intertrochanteric region of both femurs and proximal right femoral shaft. IMPRESSION: 1. No acute fracture. 2. Diffuse blastic metastasis
--- NOTE | 2016-12-27 12:38 | RADIOLOGY REPORT PS360 ---
LOWER LEG-RT HISTORY: Right lower extremity pain following injury, prostate metastasis METASTATIC MALIGNANT NEOPLASM TO PROSTATE ORDERING PHYSICIAN: Jaleel Shirley MD PATIENT AGE: 61 years COMPARISON: None FINDINGS: No acute fracture or dislocation evident. No lytic or blastic change of the tibia or fibula. IMPRESSION: No acute finding
== END ==
LOC: RAD 11:30
DX: C79.82 Secondary malignant neoplasm of genital organs (principal)

== ENCOUNTER 2017-03-14 16:29 | Emergency (ER) | payer BC ==
[~2017-03-14] VITALS: Ht 177.8 cm; Wt 59.9 kg
--- OUTSIDE RECORDS SUMMARY | 2017-03-14 16:58 | External Medical Summary Rpt ---
Author Author [facility] Organization [facility] Address Unknown Phone Unavailable Care Team Providers Care Supply Coordinator Name Role Phone Geena ROBERTS PCP [phone] Encounter [facility] [id number] Date(s): 12/02/16 - 12/31/16 [facility] [place] [address]- Discharge Disposition: OP Self Care or Home Attending Physician: CHRISTOPHER PEREZ MD-ONC Admitting Physician: CHRISTOPHER PEREZ MD-ONC Referring Physician: DEEDEE [...]
--- OUTSIDE RECORDS SUMMARY | 2017-03-14 16:58 | External Medical Summary Rpt ---
Author Author [facility] Organization [facility] Address Unknown Phone Unavailable Care Team Providers Care Cabinet Abrasive Sandblaster Name Role Phone Geena ROBERTS PCP [phone] Encounter [facility] [id number] Date(s): 11/01/16 - 12/01/16 [facility] [address] [place] [address]- Discharge Disposition: OP Self Care or Home [...]
--- OUTSIDE RECORDS SUMMARY | 2017-03-14 16:58 | External Medical Summary Rpt ---
Author Author [facility] Organization [facility] Address Unknown Phone Unavailable Care Team Providers Care Vice President Diversity Name Role Phone Geena ROBERTS PCP [phone] Encounter [facility] [id number] Date(s): 11/01/16 - 12/01/16 [facility] [address] [place] [address]- Discharge Disposition: OP Self Care or Home [...]
--- OUTSIDE RECORDS SUMMARY | 2017-03-14 16:58 | External Medical Summary Rpt ---
Author Author [facility] Organization [facility] Address Unknown Phone Unavailable Care Team Providers Care Or Assistant Name Role Phone Geena ROBERTS PCP [phone] Encounter [facility] [id number] Date(s): 12/02/16 - 12/31/16 [facility] [place] [address]- Discharge Disposition: OP Self Care or Home [...]
--- OUTSIDE RECORDS SUMMARY | 2017-03-14 16:59 | External Medical Summary Rpt ---
Author Author [facility] Organization [facility] Address Unknown Phone Unavailable Care Team Providers Care French Drawer Name Role Phone Geena ROBERTS PCP [phone] Encounter [facility] [id number] Date(s): 02/01/17 - 03/02/17 [facility] [address] [place] [address]- Discharge Disposition: OP Self Care or Home [...]
--- OUTSIDE RECORDS SUMMARY | 2017-03-14 16:59 | External Medical Summary Rpt ---
Author Author [facility] Organization [facility] Address Unknown Phone Unavailable Care Team Providers Care Traffic Ii Manager Name Role Phone Geena ROBERTS PCP [phone] Encounter [facility] [id number] Date(s): 01/01/17 - 01/31/17 [facility] [address] [place] [address]- [phone] Discharge Disposition: OP Self Care or Home [...]
--- OUTSIDE RECORDS SUMMARY | 2017-03-14 16:59 | External Medical Summary Rpt | CCD ---
Author Author , DONNA THOMPSON Address Unknown Phone [email or web address] Purpose Continuity of Care Document - 09-24-2016 through 2016 Problems Code Diagnosis DOS Provider Status C61 MALIGNANT NEOPLASM OF PROSTATE E83.52 HYPERCALCEM IA E86.0 DEHYDRATION K52.0 GASTROENTER ITIS AND COLITIS DUE TO RADIATION K52.9 NONINFECTIV E GASTROENTER ITIS AND COLITIS, UNSPECIFIED R11.2 NAUSEA WITH VOMITING, UNSPECIFIED R50.9 FEVER, UNSPECIFIED Results Labs Lab Lab Date Result [...] Microscopic panel in Urine (09-24-2016 21:00) Amorpho 09-24-2 3+ NONE complet us 017 ed sedimen 21:00 t [Presen ce] in Urine sedimen t by Light microsc opy Mucus 2 4+ NONE complet [Presen 017 ed ce] in 21:00 Urine sedimen t by Light microsc opy Leukocy 2 3-5 O complet hollis 017 wbc/hpf ed [...] Urine by Automat ed test strip Mucus 2 NEGATIV NEG complet [Presen 017 E ed ce] in 21:00 Urine sedimen t by Light microsc opy Nitrite NEGATIV NEG complet 017 E ed [Presen 21:00 ce] in Urine by Test strip Urobili 0.2 NEG complet nogen 017 ed [Presen 21:00 ce] in Urine by Test strip Differential panel, method unspecified - (09-24-2016 18:50) Anisocy 2 1+ complet tosis 017 ed [Presen 18:50 ce] in Blood LYMPH 11 % 10% - Normal complet 017 50% ed 18:50 Macrocy 09-24-2 1+ complet hollis 017 ed [Presen 18:50 ce] in Blood Platele 2 NORMAL complet ts 017 ed [Presen 18:50 ce] in Blood by Light microsc opy Rouleau 2 1+ complet x 017 ed [Presen 18:50 ce] in Blood by Light microsc opy
--- OUTSIDE RECORDS SUMMARY | 2017-03-14 16:59 | External Medical Summary Rpt | CCD ---
Author Author , DONNA THOMPSON Address Unknown Phone [email or web address] Immunization Name Date Rout CVX Reac Dose Comm Prov Is Faci e tion ent ider Refu lity Give sed n Infl 10-0 150 999 Hist D203 No D203 uenz 4-20 oric 45 45 a 16 al Quad Info Inj rmat ion - Sour ce Unsp ecif ied
--- OUTSIDE RECORDS SUMMARY | 2017-03-14 16:59 | External Medical Summary Rpt ---
Author Author [facility] Organization [facility] Address Unknown Phone Unavailable Care Team Providers Care Casting Machine Service Operator Name Role Phone Geena ROBERTS PCP [phone] Encounter [facility] [id number] Date(s): 02/01/17 - 03/02/17 [facility] [place] [address]- Discharge Disposition: OP Self Care or Home [...]
--- OUTSIDE RECORDS SUMMARY | 2017-03-14 16:59 | External Medical Summary Rpt | CCD ---
Author Author , DONNA THOMPSON Address Unknown Phone [email or web address] Purpose Continuity of Care Document - 09-24-2016 [...]
--- OUTSIDE RECORDS SUMMARY | 2017-03-14 16:59 | External Medical Summary Rpt ---
Author Author [facility] Organization [facility] Address Unknown Phone Unavailable Care Team Providers Care Supervisor Travel Trailer Name Role Phone Geena ROBERTS PCP [phone] Encounter [facility] [id number] Date(s): 01/01/17 - 01/31/17 [facility] [address] [place] [address]- Discharge Disposition: OP Self Care or Home [...]
--- OUTSIDE RECORDS SUMMARY | 2017-03-14 16:59 | External Medical Summary Rpt | CCD ---
Author Author , DONNA THOMPSON Address Unknown Phone [email or web address] Immunization Name Date Rout CVX Reac Dose Comm Prov Is Faci e tion ent ider Refu lity Give sed n Infl 10-0 150 999 Hist D203 No D203 uenz 4-20 oric 45 45 a 16 al Quad Info Inj rmat ion - Sour ce Unsp ecif ied
--- OUTSIDE RECORDS SUMMARY | 2017-03-14 17:00 | External Medical Summary Rpt ---
Author Author ALANAEMILY Alaniz, DONNA [employer] Address Unknown Phone Unavailable Results CBC W Auto Differential panel in Blood Observa Value Referen Units Interpr Notes Date tion ce etation Range Granulocy 1.3 - 8.0 K/mm3 Normal No Nov 26 hollis informati 2016 [#/volume on in 10:25 PM ] in source Blood by data Automated count Granulocy 37.0 - % Normal No Nov 26 hollis/100 80.0 informati 2016 leukocyte on in 10:25 PM s in source Blood by data Automated count Hematocri 42.0 - % Low No Nov 26 t [Volume 52.0 informati 2016 on in 10:25 PM Fraction] source of Blood data Hemoglobi 14.1 - g/dL Low No Nov 26 n 18.0 informati 2016 [Mass/vol on in 10:25 PM ume] in source Blood data Lymphocyt 0.7 - 4.5 K/mm3 Low No Nov 26 es informati 2016 [#/volume on in 10:25 PM ] in source Unspecifi data ed specimen by Automated count Lymphocyt 10 - 50 % Normal No Nov 26 es informati 2016 [#/volume on in 10:25 PM ] in source Unspecifi data ed specimen by Automated count Erythrocy 27 - 31.2 pg Normal No Nov 26 te mean inform2016 corpuscul on in 10:25 PM ar source hemoglobi data n [Entitic mass] Erythrocy 31.8 - g/dl Normal No Nov 26 te mean 35.4 informati 2016 corpuscul on in 10:25 PM ar source hemoglobi data n concentra tion [Mass/vol ume] by Automated count Erythrocy 82.2 - fL Normal Nov 26 te mean 97.8 informati 2016 corpuscul on in 10:25 PM ar volume source [Entitic data volume] by Automated count Monocytes 0.1 - 1.0 K/mm3 Normal No Nov 26 informati 2016 [#/volume on in 10:25 PM ] in source Blood by data Automated count Monocytes 1.7 - 9.3 % High No Nov 26 /100 inform2016 leukocyte on in 10:25 PM s in source Blood by data Automated count Platelets 142 - 424 K/mm3 Normal No Nov 26 inform2016 [#/volume on in 10:25 PM ] in source Blood data Erythrocy 4.6 - 6.2 M/mm3 Low No Nov 26 hollis 2016 [#/volume on in 10:25 PM ] in source Amniotic data fluid Erythrocy 11.5 - % Normal No Nov 26 te 17.5 informati 2016 distribut on in 10:25 PM ion width source [Entitic data volume] by Automated count Leukocyte 4.8 - K/mm3 Low No Nov 26 s 10.8 informati 2016 [#/volume on in 10:25 PM ] in source Blood data Comprehensive metabolic 2000 panel in Serum or Plasma Observa Value Referen Units Interpr Notes Date tion ce etation Range Albumin/G 1.1 - 1.8 No Low No Nov 26 lobulin informati informati 2016 [Mass on in on in 10:25 PM ratio] in source source Serum or data data Plasma Albumin 3.4 - 5.0 gm/dL Normal No Nov 26 [Mass/vol informati 2016 ume] in on in 10:25 PM Serum or source Plasma data Alkaline 46 - 116 U/L High No Nov 26 phosphata 2016 se on in 10:25 PM [Enzymati source c data activity/ volume] in Serum or Plasma Bilirubin 0.2 - 1.0 mg/dL Normal No Nov 26 .total inform2016 [Mass/vol on in 10:25 PM ume] in source Serum or data Plasma Urea 7 - 18 mg/dL Normal No Nov 26 nitrogen informati 2016 [Mass/vol on in 10:25 PM ume] in source Serum or data Plasma Calcium 8.5 - mg/dL High No Nov 26 [Mass/vol 10.1 informati 2016 ume] in on in 10:25 PM Serum or source Plasma data Chloride 98 - 107 mmoL/L Low No Nov 26 [Moles/vo informati 2016 lume] in on in 10:25 PM Serum or source Plasma data Carbon 21.0 - mmoL/L Normal No Nov 26 dioxide, 32.0 informati 2016 total on in 10:25 PM [Moles/vo source lume] in data Serum or Plasma Creatinin 0.70 - mg/dL Low No Nov 26 e 1.30 inform2016 [Mass/vol on in 10:25 PM ume] in source Serum or data Plasma Creatinin 50 - 200 ML/MIN Normal No Nov 26 e renal 2016 clearance on in 10:25 PM source predicted data by Cockcroft -Gault formula Estimated >60 ML/MIN No REFERENCE Nov 26 informati RANGE: 2017 glomerula on in >60 10:25 PM r source ML/MIN/1. filtratio data 73 SQUARE n rate METERSIf (GF this patient is -A merican, then multiply theresult by 1.210. Globulin 1.3 - 3.2 gm/dL High No Nov 26 [Mass/vol informati 2016 ume] in on in 10:25 PM Serum source data Glucose 74 - 106 mg/dL High No Nov 26 [Mass/vol informati 2016 ume] in on in 10:25 PM Serum or source Plasma data Potassium 3.5 - 5.1 mmoL/L Normal No Nov 262016 [Moles/vo on in 10:25 PM lume] in source Serum or data Plasma Sodium 136 - 145 mmoL/L Low No Nov 26 [Moles/vo informati 2016 lume] in on in 10:25 PM Serum or source Plasma data Aspartate 15 - 37 U/L High No Nov 262016 aminotran on in 10:25 PM sferase source [Enzymati data c activity/ volume] in Serum or Plasma Alanine 12 - 78 U/L Normal No Nov 26 aminotran 2016 sferase on in 10:25 PM [Enzymati source c data activity/ volume] in Serum or Plasma Protein 6.4 - 8.2 gm/dL Normal No Nov 26 [Mass/vol informati 2016 ume] in on in 10:25 PM Serum or source Plasma data Comprehensive metabolic 2000 panel in Serum or Plasma Observa Value Referen Units Interpr Notes Date tion ce etation Range Albumin/G 1.1 - 1.8 No Low No Nov 26 lobulin informati ati 2016 [Mass on in on in 10:25 PM ratio] in source source Serum or data data Plasma Albumin 3.4 - 5.0 gm/dL Normal No Nov 26 [Mass/vol informati 2016 ume] in on in 10:25 PM Serum or source Plasma data Alkaline 46 - 116 U/L High No Nov 26 phosphata informati 2016 se on in 10:25 PM [Enzymati source c data activity/ volume] in Serum or Plasma Bilirubin 0.2 - 1.0 mg/dL Normal No Nov 26 .total informati 2016 [Mass/vol on in 10:25 PM ume] in source Serum or data Plasma Urea 7 - 18 mg/dL Normal No Nov 26 nitrogen informati 2016 [Mass/vol on in 10:25 PM ume] in source Serum or data Plasma Calcium 8.5 - mg/dL High No Nov 26 [Mass/vol 10.1 informati 2016 ume] in on in 10:25 PM Serum or source Plasma data Chloride 98 - 107 mmoL/L Low No Nov 26 [Moles/vo informati 2016 lume] in on in 10:25 PM Serum or source Plasma data Carbon 21.0 - mmoL/L Normal No Nov 26 dioxide, 32.0 informati 2016 total on in 10:25 PM [Moles/vo source lume] in data Serum or Plasma Creatinin 0.70 - mg/dL Low No Nov 26 e 1.30 informati 2016 [Mass/vol on in 10:25 PM ume] in source Serum or data Plasma Creatinin 50 - 200 ML/MIN Normal No Nov 26 e renal informati 2017 clearance on in 10:25 PM source predicted data by Cockcroft -Gault formula Estimated >60 ML/MIN No REFERENCE Nov 26 informati RANGE: 2017 glomerula on in >60 10:25 PM r source ML/MIN/1. filtratio data 73 SQUARE n rate METERSIf (GF this patient is -A merican, then multiply theresult by 1.210. Globulin 1.3 - 3.2 gm/dL High No Nov 26 [Mass/vol informati 2016 ume] in on in 10:25 PM Serum source data Glucose 74 - 106 mg/dL High No Nov 26 [Mass/vol informati 2016 ume] in on in 10:25 PM Serum or source Plasma data Potassium 3.5 - 5.1 mmoL/L Normal No Nov 26 informati 2016 [Moles/vo on in 10:25 PM lume] in source Serum or data Plasma Sodium 136 - 145 mmoL/L Low No Nov 26 [Moles/vo informati 2016 lume] in on in 10:25 PM Serum or source Plasma data Aspartate 15 - 37 U/L High No Nov 26 inform2016 aminotran on in 10:25 PM sferase source [Enzymati data c activity/ volume] in Serum or Plasma Alanine 12 - 78 U/L Normal No Nov 26 aminotran informati 2016 sferase on in 10:25 PM [Enzymati source c data activity/ volume] in Serum or Plasma Protein 6.4 - 8.2 gm/dL Normal No Nov 26 [Mass/vol informati 2016 ume] in on in 10:25 PM Serum or source Plasma data Comprehensive metabolic 2000 panel in Serum or Plasma Observa Value Referen Units Interpr Notes Date tion ce etation Range Albumin/G 1.1 - 1.8 No Low No Nov 26 lobulin informati informati 2016 [Mass on in on in 10:25 PM ratio] in source source Serum or data data Plasma Albumin 3.4 - 5.0 gm/dL Normal No Nov 26 [Mass/vol informati 2016 ume] in on in 10:25 PM Serum or source Plasma data Alkaline 46 - 116 U/L High No Nov 26 phosphata informati 2016 se on in 10:25 PM [Enzymati source c data activity/ volume] in Serum or Plasma Bilirubin 0.2 - 1.0 mg/dL Normal No Nov 26 .total informati 2016 [Mass/vol on in 10:25 PM ume] in source Serum or data Plasma Urea 7 - 18 mg/dL Normal No Nov 26 nitrogen informati 2016 [Mass/vol on in 10:25 PM ume] in source Serum or data Plasma Calcium 8.5 - mg/dL High No Nov 26 [Mass/vol 10.1 informati 2016 ume] in on in 10:25 PM Serum or source Plasma data Chloride 98 - 107 mmoL/L Low No Nov 26 [Moles/vo informati 2017 lume] in on in 10:25 PM Serum or source Plasma data Carbon 21.0 - mmoL/L Normal No Nov 26 dioxide, 32.0 informati 2016 total on in 10:25 PM [Moles/vo source lume] in data Serum or Plasma Creatinin 0.70 - mg/dL Low No Nov 26 e 1.30 informati 2017 [Mass/vol on in 10:25 PM ume] in source Serum or data Plasma Creatinin 50 - 200 ML/MIN Normal No Nov 26 e renal informati 2017 clearance on in 10:25 PM source predicted data by Cockcroft -Gault formula Estimated >60 ML/MIN No REFERENCE Nov 26 informati RANGE: 2017 glomerula on in >60 10:25 PM r source ML/MIN/1. filtratio data 73 SQUARE n rate METERSIf (GF this patient is -A merican, then multiply theresult by 1.210. Globulin 1.3 - 3.2 gm/dL High No Nov 26 [Mass/vol informati 2016 ume] in on in 10:25 PM Serum source data Glucose 74 - 106 mg/dL High No Nov 26 [Mass/vol informati 2016 ume] in on in 10:25 PM Serum or source Plasma data Potassium 3.5 - 5.1 mmoL/L Normal No Nov 26 inform2016 [Moles/vo on in 10:25 PM lume] in source Serum or data Plasma Sodium 136 - 145 mmoL/L Low No Nov 26 [Moles/vo informati 2016 lume] in on in 10:25 PM Serum or source Plasma data Aspartate 15 - 37 U/L High No Nov 262016 aminotran on in 10:25 PM sferase source [Enzymati data c activity/ volume] in Serum or Plasma Alanine 12 - 78 U/L Normal No Nov 26 aminotran inform2016 sferase on in 10:25 PM [Enzymati source c data activity/ volume] in Serum or Plasma Protein 6.4 - 8.2 gm/dL Normal No Nov 26 [Mass/vol informati 2016 ume] in on in 10:25 PM Serum or source Plasma data Urinalysis macro (dipstick) panel in Urine Observa [...] No Nov 06 [Mass/vol informati informati informati 2016 ume] in on in on in on [...] No Nov 06 gravity 1.030 informati informati 2016 of Urine on in on in 10:20 AM source source data data Leukocy NEGATIV NEG No No No Nov 06 te E informa informa informa 2017 esteras tion in tion in tion in 10:20 e source source source AM [...] nogen informa informa 2016 [Presen tion in tion in 10:20 ce] in source source AM Urine data data by Test strip Glucose [Mass/volume] in Capillary blood by Glucometer Observa Value Referen Units Interpr Notes Date ti ce etation Range Glucose 70 - 110 mg/dl High No Sep 26 [Mass/vol informati 2016 ume] in on in 12:16 PM Capillary source blood by data Glucomete r Glucose [Mass/volume] in Capillary blood by Glucometer Observa Value Referen Units Interpr Notes Date ti ce etation Range Glucose 70 - 110 mg/dl High No Sep 26 [Mass/vol informati 2016 6:31 ume] in on in AM Capillary source blood by data Glucomete r Glucose [Mass/volume] in Capillary blood by Glucometer Observa Value Referen Units Interpr Notes Date tion ce etation Range Glucose 70 - 110 mg/dl High No Sep 25 [Mass/vol informati 2016 ume] in on in 10:04 PM Capillary source blood by data Glucomete r Glucose [Mass/volume] in Capillary blood by Glucometer Observa Value Referen Units Interpr Notes Date tion ce etation Range Glucose 70 - 110 mg/dl High No Sep 25 [Mass/vol informati 2017 4:55 ume] in on in PM Capillary source blood by data Glucomete r Glucose [Mass/volume] in Capillary blood by Glucometer Observa Value Referen Units Interpr Notes Date tion ce etation Range Glucose 70 - 110 mg/dl High No Sep 25 [Mass/vol informati 2016 ume] in on in 11:52 AM Capillary source blood by data Glucomete r Glucose [Mass/volume] in Capillary blood by Glucometer Observa Value Referen Units Interpr Notes Date ti ce etation Range Glucose 70 - 110 mg/dl High No Sep 25 [Mass/vol informati 2016 6:24 ume] in on in AM Capillary source blood by data Glucomete r DIARRHEA PANEL,PCR Observa Value Referen Units Interpr Notes Date tion ce etation Range Adenovi NOT NOT No No No Sep 25 eliza DETECTE DETECTE informa informa informa 2016 40+41 D tion in tion in tion in 3:57 AM Ag source source source [Presen data data data ce] in Stool Aeromon NOT NOT No No No Sep 25 as DETECTE DETECTE informa informa informa 2016 salmoni D tion in tion in tion in 3:57 AM sindy source source source [Presen data data data ce] in Unspeci fied specime n Astrovi NOT NOT No No No Sep 25 eliza DETECTE DETECTE informa informa informa 2016 [Presen D tion in tion in tion in 3:57 AM ce] in source source source Stool data data data by Electro n microsc opy Campylo NOT NOT No No No Sep 25 bacter DETECTE DETECTE informa informa informa 2016 sp Ab D tion in tion in [...] Sep 25 DETECTE DETECTE informa informa informa 2017 lamblia D tion in tion in tion [...] sp DNA DETECTE DETECTE informa informa informa 2017 [Identi D tion in tion in tion in 3:57 AM fier] source source source in data data data Unspeci fied specime n by Probe & target amplifi cation method Vibrio NOT NOT No No No Sep 25 sp DETECTE DETECTE informa informa informa 2017 identif D tion in tion in tion in 3:57 AM ied in source source source Stool data data data by Organis m specifi c culture Hemoglobin.gastrointestinal [Presence] in [...] No Sep 24 gravity 1.030 informati informati 2017 9:00 of Urine on in on in PM source source data data Urobili 0.2 NEG E.U./dL No No Sep 24 nogen informa informa 2016 [Presen tion in tion in 9:00 PM ce] in source source Urine data data by Test strip Leukocy [3 O wbc/hpf No No Sep 24 hollis wbc/hpf informa informa 2016 [#/volu ; 5 tion in tion in [...] No Sep 24 of informa informa informa 2016 Urine tion in tion in tion in 9:00 PM source source source data data data Glucose NEG No High No Sep 24 [Mass/vol informati informati 2016 9:00 ume] in on in on in [...] No Sep 24 gravity 1.030 informati informati 2017 9:00 of Urine on in on in PM source source data data Urobili 0.2 NEG E.U./dL No No Sep 24 nogen informa informa 2016 [Presen tion in tion in 9:00 PM ce] in source source Urine data data by Test strip Lactate [Moles/volume] in Blood Observa Value Referen Units Interpr Notes Date tion ce etation Range Lactate 0.4 - 2.0 mmol/L Normal No Sep 24 [Moles/vo informati 2017 8:00 lume] in on in PM Blood source data CBC W Auto Differential panel in Blood Observa Value Referen Units Interpr Notes Date tion ce etation Range Basophils 0 - 0.2 K/MM3 Normal No Sep 24 informati 2017 6:50 [...] K/mm3 Normal No Sep 24 hollis informati 2016 6:50 [#/volume on in PM ] in source Blood by data Automated count Granulocy 37.0 - % High No Sep 24 hollis/100 80.0 informati 2017 6:50 leukocyte on in PM [...] Normal No Sep 24 te mean informati 2016 6:50 corpuscul on in PM ar source hemoglobi data n [Entitic mass] Erythrocy 31.8 - g/dl Normal No Sep 24 te mean 35.4 informati 2017 6:50 corpuscul on in PM ar source hemoglobi data n concentra tion [Mass/vol ume] by Automated count Erythrocy 82.2 - fl Normal No Sep 24 te mean 97.8 informati 2016 6:50 corpuscul on in PM ar volume source [Entitic data volume] by Automated count Monocytes 0.1 - 1.0 K/mm3 Normal No Sep 24 informati 2016 6:50 [#/volume on in PM ] in source Blood by data Automated count Monocytes 1.7 - 9.3 % Normal No Sep 24 informati 2017 6:50 leukocyte on in PM s in source Blood by data Automated count Platelet 7.4 - fl Low No Sep 24 mean 10.4 informati 2016 6:50 volume on in PM [Entitic source volume] data in Blood by Automated count Platelets 142 - 424 K/mm3 No No Sep 24 informati informati 2017 6:50 [#/volume on in on in PM ] in source source Blood data data Erythrocy 4.6 - 6.2 M/mm3 Low No Sep 24 hollis informati 2016 6:50 [#/volume on in PM ] in source Amniotic data fluid Erythrocy 11.5 - % Normal No Sep 24 te 17.5 informati 2017 6:50 distribut on in PM ion width source [Entitic data volume] by Automated count Leukocyte 4.8 - K/MM3 Low No Sep 24 s 10.8 informati 2016 6:50 [#/volume on in PM [...] - 50 % Normal No Sep 24 inform2016 tion in 6:50 PM source data Macrocy 1+ No No No No Sep 24 hollis informa informa informa informa 2016 [Presen tion in tion in tion in tion in 6:50 PM ce] in source source source source Blood data data data data Monocytes 2 - 9 % Normal No Sep 24 informati 2016 6:50 leukocyte on in PM [...] Sep 24 x informa informa informa informa 2017 [Presen tion in [...] Observa Value Referen Units Interpr Notes Date ti ce etation Range Albumin/G 1.1 - 1.8 [...] mg/dL Normal No Sep 24 .total informati 2017 6:50 [Mass/vol on in PM [...] mmoL/L Normal No Sep 24 [Moles/vo informati 2017 6:50 lume] in on in PM Serum or source Plasma data Carbon 21.0 - mmoL/L Normal No Sep 24 dioxide, 32.0 informati 2017 6:50 total on in PM [Moles/vo source lume] in data Serum or Plasma Creatinin 0.70 - mg/dL Low No Sesar 24 e 1.30 informati 2016 6:50 [Mass/vol [...] gm/dL High No Sep 24 [Mass/vol informati 2016 6:50 ume] in on in PM Serum source data Glucose 74 - 106 mg/dL High No Sep 24 [Mass/vol informati 2016 6:50 ume] in on in PM Serum or source Plasma data Potassium 3.5 - 5.1 mmoL/L Normal No Sep 24 informati 2016 6:50 [Moles/vo on in PM lume] in [...]
--- OUTSIDE RECORDS SUMMARY | 2017-03-14 17:00 | External Medical Summary Rpt ---
Author Author ALANAEMILY Alaniz, [employer] Address Unknown Phone Unavailable [...]
[2017-03-14 17:03] LABS: URINE BILIRUBIN - DIPSTICK NEGATIVE (NEG); URINE BLOOD 1+ (NEG)
[2017-03-14 17:07] LABS: LYMPH # 0.3 K/mm3 (0.7-4.5); LYMPH % 10.1 % (10-50)
[2017-03-14 17:13] LABS: HEMOGLOBIN 10.5 g/dL (14.1-18.0)
--- NOTE | 2017-03-14 17:44 | Emergency Room Report ---
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 N Clinical Suspician of Infection? N Mental Status: 1 - Regular (Normal Baseline) Sepsis Risk:Low Sepsis Risk Have you (or family members/close friends) recently traveled outside the [place]? N If Yes, where/when: Have you had exposure to infectious disease within the past month? N TB? Other? Specify: Source patient, RN notes reviewed, family, RN/MD Exam Limitations no limitations Comment This is a 61-year-old male patient brought to the emergency room by his with acute urinary retention since 12:00 today. Patient has a history of stage IV prostate cancer, currently in treatment at [facility]. She is complaining with lower abdominal pain and distention. He is still able to dribble small amounts of fluids by overflow. ALLERGIES Coded Allergies: ciprofloxacin (From Cipro) (04/14/15) Home Medications Active Scripts TAMSULOSIN HCL (Flomax) 0.4 MG PO QHS #30 CAP Prov: 11/06/16 Reported Medications Prednisone (Prednisone 5MG) 5 MG PO BID #60 Alprazolam 0.5 MG PO PRN PRN ANXIETY #60 OXYCODONE HCL/ACETAMINOPHEN (Oxycodone-Acetaminophen 5-325) 2 TAB PO Q4-6 INSULIN GLARGINE (Lantus 3ML Solostar Pen) 20 UNITS SC DAILY LINAGLIPTIN/METFORMIN HCL (Jentadueto 2.5 MG-500 MG Tab) 1 TAB PO BIDD Morphine Sulfate (Morphine Sulfate ER) 100 MG PO TID #60 Naproxen Sodium (Aleve) History Medical History General CAD? No Angina: No PA: No Hypertension? No Hyperlipidemia? Yes CHF? No DVT? No PE? No COPD? No Asthma? No Anemia? No GERD? No Gastric ulcers? No GI Bleed? No Hernia? No Thyroid Problems? No Hypothyroidism? No CVA? No Seizures? No Diabetes? Yes Insulin Dependent: Yes Insulin Pump: No Home FSBS? Yes Renal Insuffiency? No End Stage Renal Disease? No UTI? No Stones? Yes BPH? No GB Disease: No Nephritic Syndrome? No Asplenia? No Hepatitis? No Sickle Cell Disease? No Arthritis? No Migraines? No Cataracts? No Glaucoma? No MRSA? No HIV? No TB? No Anxiety? Yes Depression? No Cancer? Yes Site: PROSTATE STAGE IV CA More? Yes Additional hx: RADIATION R/T PROSTATE CA Immunization Hx DT/Tetanus Unknown Pneumonia Refuses Surgical Hx Previous Surgery?Y PROSTATE BX Family History Family Hx Diabetes Yes CAD Yes Hypertension Yes Hyperlipidemia Yes Cancer Yes TB No Social History Smoking Hx Smoker: Never Smoker Tobacco: No Packs/day < 1 Pack Alcohol Alcohol: No Review of Systems All Other Systems Reviewed and Negative Genitourinary pain (lower abdominal pain). Physical Exam Vital Signs Vital Signs Date Time Temp Pulse Resp B/P Pulse O2 O2 Flow FiO2 Ox Delivery Rate 03/14 1752 98.4 98 18 125/75 99 03/14 1639 98.4 98 18 99 General Appearance normal appearance, WD/WN, moderate distress Respiratory Status Yes: trachea midline, chest symmetrical, non tender chest. No: respiratory distress. Lung Sounds bilateral: normal breath sounds, lungs clear. Cardiovascular normal exam, regular rate/rhythm, no peripheral edema, no gallop, no JVD, no murmur, no rub, normal peripheral pulses Gastrointestinal normal bowel sounds, normal exam, soft, no organomegaly, tenderness (suprapubic tenderness) Extremities non-tender, normal range of motion, normal inspection Neurologic alert, toe trimmer II-XII nml as tested, normal exam, oriented x 3 Mental status normal mood/affect Skin intact, normal color, warm/dry Medical Decision Making LABS/Meds/Orders Pt receiving controlled substance in ED? No Comment 1725-patient reevaluated, appears medically stable, significantly improved, after draining approximately 800 mL urine in the Nunez catheter. Patient will be discharged home with the Nunez catheter in, instructed to follow -up with Dr. Rockwell within 48 hours, for reevaluation. If unable to see Dr. Rockwell patient advised to return promptly to this emergency room for Nunez catheter removal. Results/Orders Laboratory Tests 03/14/17 1645: Sodium 133 L, Potassium 4.2, Chloride 98, Carbon Dioxide 30, BUN 12, Creatinine 0.6 L, Estimated Creat Clear 111, Estimated GFR (MDRD) 137, Glucose 168 H, Calcium 10.8 H, Total Bilirubin 0.7, AST 76 H, ALT 29, Alkaline Phosphatase 965 H, Total Protein 6.4, Albumin 2.7 L, Globulin 3.7 H, Albumin/Globulin Ratio 0.7 L, WBC 3.4 L, RBC 4.38 L, Hgb 10.5 L, Hct 34.0 L, MCV 77.5 L, RDW 15.9, Plt Count 312, MPV 6.9 L, Gran % 75.0, Gran # 2.5, Lymphocytes % 10.1 , Monocytes % 13.5 H, Eosinophils % 1.1, Basophils % 0.4, Lymphocytes # 0.3 L, Monocytes # 0.5, Eosinophils # 0.0, Basophils # 0.0, PUBS MCHC 30.3 L, MCH 23.5 L, Urine Color YELLOW, Urine Appearance CLEAR, Urine pH 6.0, Ur Specific [place] 1.015, Urine Protein NEGATIVE, Urine Ketones NEGATIVE, Urine Blood 1+ H , Urine Nitrate NEGATIVE, Urine Bilirubin NEGATIVE, Urine Urobilinogen 0.2, Ur Leukocyte Esterase NEGATIVE, Urine RBC 3-5, Urine WBC 3-5, Ur Squamous Epith Cells NONE, Urine Bacteria TRACE, Urine Glucose NEGATIVE Orders Procedure Date/time Status CBC WITH AUTO DIFF 03/14 1642 Complete CHEM 12 PROFILE 03/14 1642 Complete URINARY CATHETER INSERT 03/14 1637 Active URINALYSIS/COMPLETE 03/14 1637 Complete Departure Departure Time of Disposition 1742 Disposition DC Home or Self Care(routine) Clinical Impression Primary Impression: Acute urinary retention Condition STABLE Referrals Luli ZHANG,[facility] [place] Patient Instructions DI for Urinary Retention in Men Additional Instructions Please leave the Nunez catheter in until seen and reevaluated by Dr. Rockwell in 2 days. Discharge Counseling Counseled pt/family regarding diagnosis, test results, medications/RX, home care, follow up needs Comment Please leave the Nunez catheter in until seen and reevaluated by Dr. Rockwell in 2 days. ED Critical Care Critical Care No at 1904
[2017-03-14 17:52] VITALS: BP 125/75
[2017-03-25] MEDS ORDERED: BETHANECHOL CHL25 MG PO (10:05)
[2017-03-25] MEDS ORDERED: MARINOL10 MG PO (10:06)
[2017-03-25] MEDS ORDERED: GABAPENTIN300 MG PO (10:06)
[2017-03-25] MEDS ORDERED: PYRIDIUM200 M2 PO (10:06)
[2017-03-25] MEDS ORDERED: [UNRECOGNIZED DRUG - OTHER] IV (10:07)
[2017-03-25] MEDS ORDERED: VALIUM 5MG TABLE5 MG PO (10:07)
[2017-03-25] MEDS ORDERED: BASAGLAR K100 UNIT/1 SQ (10:08)
== END 2017-03-14 17:53 | disposition home or self-care (01) ==
LOC: ER 16:29
PROVIDERS: Emergency Medicine
DX: R33.9 Retention of urine, unspecified (principal); Z79.899 Other long term (current) drug therapy